=== PATIENT | female | born 1940 | race Two or more races ===

== ENCOUNTER 2021-05-31 17:39 | Inpatient (IN) | payer MEDICARE ==
[~2021-05-31] VITALS: Ht 167.6 cm; Wt 71.7 kg
[2021-05-31] MEDS ORDERED: SODIUM CHLORIDE 0.9% 1,000 ML IV ONE (18:00)
[2021-05-31] MEDS ORDERED: ONDANSETRON HCL 4MG/2ML INJ IV ONE (18:00)
[2021-05-31] MEDS ORDERED: HYDROCODONE/ACETAMINOPHEN 5/325MG TABLET PO ONE (19:45)
[2021-05-31 21:02] LABS: BASOPHILS % 0.2 % (0.0-2.0); EOSINOPHILS % 0.1 % (0.0-5.0); HEMATOCRIT. 33.9 % (36.0-48.0); HEMOGLOBIN. 11.1 g/dL (12.0-16.0); LYMPHOCYTES % 8.8 % (20.0-50.0); MEAN CORPUSCULAR HEMOGLOBIN 25.9 pg (28.0-32.0); MEAN CORPUSCULAR VOLUME 78.8 fL (81.0-99.0); MEAN PLATELET VOLUME 7.5 fl (7.4-10.4); MONOCYTES % 5.2 % (2.0-8.0); NEUTROPHILS % 85.7 % (40.0-76.0); PLATELET 256 x1000/uL (130-400); RED BLOOD CELL COUNT 4.31 mill/uL (4.2-5.4)
[2021-05-31 21:08] LABS: CHLORIDE 109 mEq/L (98-107)
[2021-05-31] MEDS ORDERED: SODIUM CHLORIDE 0.9% 1000ML BAG (SEPSIS BOLUS) IV NR (22:00)
[2021-05-31] MEDS ORDERED: PIPERACILLIN/TAZ 3.375G PREMIX 50 ML IV NR (22:00)
[2021-05-31] MEDS ORDERED: KETOROLAC 15MG/ML VIAL IV ONE (22:30)
[2021-05-31 23:29] LABS: CLARITY URINE CLOUDY (CLEAR); COLOR URINE YELLOW (YELLOW); KETONES URINE TRACE (NEGATIVE); LEUKOCYTE ESTERASE URINE 2+ (NEGATIVE); NITRITE URINE NEGATIVE (NEGATIVE); OCCULT BLOOD URINE NEGATIVE (NEGATIVE); PH URINE 5.5 (4.5-8.0); PROTEIN URINE NEGATIVE (NEGATIVE); SPECIFIC GRAVITY URINE 1.022 (1.005-1.030); UROBILINOGEN URINE 0.2 E.U./dL (0.2-1.0)
[2021-05-31] MEDS ORDERED: LORAZEPAM 2MG/ML CPJ IV PRN (23:45)
[2021-05-31] MEDS ORDERED: ACETAMINOPHEN 325MG TABLET PO PRN (23:45)
[2021-05-31] MEDS ORDERED: NALOXONE HCL 0.4MG/ML VIAL IV PRN (23:45)
[2021-06-01] MEDS: MORPHINE SULFATE 2 MG/ML CPJ (NOT FOR IM USE) IV PRN ×2 (00:04→15:57)
[2021-06-01] MEDS ORDERED: CEFTRIAXONE 1 G PREMIX 50 ML IV NR (01:00)
[2021-06-01] MEDS: HYDROCODONE/ACETAMINOPHEN 5/325MG TABLET PO PRN (01:52)
[2021-06-01 05:13] LABS: BASOPHILS % 0.2 % (0.0-2.0); HEMATOCRIT. 26.6 % (36.0-48.0); HEMOGLOBIN. 8.9 g/dL (12.0-16.0); LYMPHOCYTES % 7.3 % (20.0-50.0); MEAN CORPUSCULAR HEMOGLOBIN 26.6 pg (28.0-32.0); MEAN CORPUSCULAR VOLUME 79.9 fL (81.0-99.0); MEAN PLATELET VOLUME 8.1 fl (7.4-10.4); MONOCYTES % 3.9 % (2.0-8.0); NEUTROPHILS % 88.6 % (40.0-76.0); PLATELET 249 x1000/uL (130-400); RED BLOOD CELL COUNT 3.33 mill/uL (4.2-5.4); RED CELL DISTRIBUTION WIDTH 14.4 % (11.6-14.6)
[2021-06-01 05:17] LABS: CHLORIDE 114 mEq/L (98-107)
[2021-06-01] MEDS: SODIUM CHLORIDE 0.9% 1,000 ML IV SCH ×2 (07:08→16:07)
[2021-06-01] MEDS ORDERED: ENOXAPARIN 40MG/0.4ML SYR SUBCUT SCH (09:00)
[2021-06-01] MEDS: DILTIAZEM HCL 30MG TABLET PO SCH ×2 (15:57→21:42)
[2021-06-01 16:00] VITALS: BP 135/66
[2021-06-01] MEDS ORDERED: CLON0.1T MT (17:26)
[2021-06-01] MEDS ORDERED: RIVA20TA MT (17:28)
[2021-06-01] MEDS: ONDANSETRON HCL 4MG/2ML INJ IV PRN (19:00)
[2021-06-01] MEDS ORDERED: IPRATROPIUM/ALBUTEROL 0.5-3(2.5)MG/3ML NEB HHN PRN (19:45)
[2021-06-01] MEDS ORDERED: MAGNESIUM/ALUMINUM HYDROXIDE/SIMETHICONE 30ML UDC PO PRN (19:45)
[2021-06-01 19:47] VITALS: BP 135/66
[2021-06-01 20:00] VITALS: BP 158/63
[2021-06-01] MEDS ORDERED: MAGNESIUM 2 G PREMIX 50 ML IV NR (21:00)
[2021-06-01] MEDS: DILTIAZEM HCL 5MG/ML 5ML VIAL IV PRN (22:19)
[2021-06-02] VITALS (10 sets, daily range): BP systolic 101–156; BP diastolic 55–79
[2021-06-02] MEDS: SODIUM CHLORIDE 0.9% 1,000 ML IV SCH ×2 (04:44→20:20)
[2021-06-02] MEDS: HYDROCODONE/ACETAMINOPHEN 5/325MG TABLET PO PRN ×2 (05:00→19:20)
[2021-06-02] MEDS: DILTIAZEM HCL 30MG TABLET PO SCH ×2 (05:15→13:42)
[2021-06-02] MEDS: CEFTRIAXONE 1,000 MG in DEXTROSE 5% WATER 50 ML IV SCH (08:33)
[2021-06-02] MEDS: ONDANSETRON HCL 4MG/2ML INJ IV PRN ×2 (08:34→15:23)
[2021-06-02] MEDS ORDERED: ATOR40TA70 MT (10:11)
[2021-06-02] MEDS ORDERED: ANAS1TAB49 MT (10:11)
[2021-06-02 10:40] LABS: BASOPHILS % 0.8 % (0.0-2.0); EOSINOPHILS % 1.5 % (0.0-5.0); LYMPHOCYTES % 14.6 % (20.0-50.0); MEAN CORPUSCULAR HEMOGLOBIN 25.7 pg (28.0-32.0); MEAN CORPUSCULAR VOLUME 81.3 fL (81.0-99.0); MEAN PLATELET VOLUME 8.6 fl (7.4-10.4); MONOCYTES % 9.7 % (2.0-8.0); NEUTROPHILS % 73.4 % (40.0-76.0); PLATELET 211 x1000/uL (130-400); RED BLOOD CELL COUNT 2.67 mill/uL (4.2-5.4); RED CELL DISTRIBUTION WIDTH 14.6 % (11.6-14.6)
[2021-06-02 10:51] LABS: CHLORIDE 115 mEq/L (98-107)
[2021-06-02 10:56] LABS: HEMATOCRIT. 21.7 % (36.0-48.0); HEMOGLOBIN. 6.9 g/dL (12.0-16.0)
[2021-06-02 10:58] LABS: LDL CHOLESTEROL 55 mg/dL (5-100)
[2021-06-02 11:00] LABS: HDL CHOLESTEROL 36 mg/dL (40-59); T4 FREE 1.03 ng/dL (0.76-1.46)
[2021-06-02 14:36] LABS: TOTAL IRON BINDING CAPACITY 285 ug/dL (250-450)
[2021-06-02] MEDS ORDERED: DIGOXIN 250MCG TABLET PO NR (15:30)
[2021-06-02 16:18] LABS: FOLIC ACID (FOLATE) SERUM 3.7 ng/mL (>5.38)
[2021-06-02] MEDS ORDERED: RIVAROXABAN 20 MG TABLET PO SCH (17:00)
[2021-06-02] MEDS: DILTIAZEM HCL 60MG TABLET PO SCH (21:13)
[2021-06-02] MEDS: OMEPRAZOLE 20MG CAPSULE EXTENDED RELEASE PO SCH (21:13)
[2021-06-02 22:53] LABS: HEMATOCRIT 24.3 % (36.0-48.0); HEMOGLOBIN 8.7 g/dL (12.0-16.0)
[2021-06-02] MEDS: DILTIAZEM HCL 5MG/ML 5ML VIAL IV PRN (23:03)
[2021-06-03] VITALS: BP 131/62
[2021-06-03] MEDS: HYDROCODONE/ACETAMINOPHEN 5/325MG TABLET PO PRN ×2 (00:40→16:30)
[2021-06-03 04:00] VITALS: BP 100/70
[2021-06-03] MEDS: OMEPRAZOLE 20MG CAPSULE EXTENDED RELEASE PO SCH ×2 (06:01→20:37)
[2021-06-03] MEDS: DILTIAZEM HCL 60MG TABLET PO SCH ×3 (06:01→19:01)
[2021-06-03 07:52] LABS: CHLORIDE 114 mEq/L (98-107)
[2021-06-03 07:59] LABS: BASOPHILS % 0.8 % (0.0-2.0); EOSINOPHILS % 2.7 % (0.0-5.0); HEMATOCRIT. 22.8 % (36.0-48.0); HEMOGLOBIN. 7.8 g/dL (12.0-16.0); MEAN CORPUSCULAR HEMOGLOBIN 27.5 pg (28.0-32.0); MEAN CORPUSCULAR VOLUME 80.9 fL (81.0-99.0); MEAN PLATELET VOLUME 7.8 fl (7.4-10.4); MONOCYTES % 12.3 % (2.0-8.0); NEUTROPHILS % 69.2 % (40.0-76.0); PLATELET 195 x1000/uL (130-400); RED BLOOD CELL COUNT 2.82 mill/uL (4.2-5.4)
[2021-06-03 08:00] VITALS: BP 128/70
[2021-06-03] MEDS: SODIUM CHLORIDE 0.9% 1,000 ML IV SCH (09:08)
[2021-06-03] MEDS: CEFTRIAXONE 1,000 MG in DEXTROSE 5% WATER 50 ML IV SCH (09:08)
[2021-06-03] MEDS ORDERED: DIGOXIN 125MCG TABLET PO SCH ×3 (10:30→18:00)
[2021-06-03 12:00] VITALS: BP 101/70
[2021-06-03 16:00] VITALS: BP 121/52
[2021-06-03] MEDS: CLONIDINE 0.1MG TABLET PO PRN (16:30)
[2021-06-03] MEDS: IRON SUCROSE COMPLEX 100 MG/5 ML ML IV SCH (19:02)
[2021-06-03 20:00] VITALS: BP 145/68
[2021-06-03 23:45] LABS: HEMATOCRIT 22.8 % (36.0-48.0)
[2021-06-04] VITALS: BP 137/57
[2021-06-04] MEDS: SODIUM CHLORIDE 0.9% 1,000 ML IV SCH (00:13)
[2021-06-04] MEDS: DILTIAZEM HCL 60MG TABLET PO SCH ×3 (00:42→11:25)
[2021-06-04 04:00] VITALS: BP 142/59
[2021-06-04] MEDS: OMEPRAZOLE 20MG CAPSULE EXTENDED RELEASE PO SCH ×2 (06:21→20:28)
[2021-06-04 07:05] LABS: HEMATOCRIT 25.4 % (36.0-48.0); HEMOGLOBIN 8.6 g/dL (12.0-16.0)
[2021-06-04 08:00] VITALS: BP 152/62
[2021-06-04] MEDS ORDERED: DIGOXIN 250MCG TABLET PO SCH (08:55)
[2021-06-04] MEDS: FOLIC ACID 1MG TABLET PO SCH (11:25)
[2021-06-04 12:00] VITALS: BP 152/74
[2021-06-04] MEDS: DILTIAZEM HCL 90MG TABLET PO SCH ×3 (12:00→23:32)
[2021-06-04 16:00] VITALS: BP 160/67
[2021-06-04] MEDS: IRON SUCROSE COMPLEX 100 MG/5 ML ML IV SCH (16:00)
[2021-06-04] MEDS ORDERED: LACTULOSE 20G/30ML UDC PO PRN (16:15)
[2021-06-04] MEDS: LEVOFLOXACIN 500MG TABLET PO SCH (16:18)
[2021-06-04] MEDS: DOCUSATE SODIUM 100MG CAPSULE PO SCH (17:45)
[2021-06-04] MEDS: DIGOXIN 250MCG TABLET PO SCH (17:45)
[2021-06-04 20:00] VITALS: BP 103/70
[2021-06-04] MEDS: HYDROCODONE/ACETAMINOPHEN 5/325MG TABLET PO PRN (20:47)
[2021-06-04] MEDS: ONDANSETRON HCL 4MG/2ML INJ IV PRN (20:48)
[2021-06-05] VITALS: BP 130/75
[2021-06-05 04:00] VITALS: BP 168/65
[2021-06-05] MEDS: DILTIAZEM HCL 90MG TABLET PO SCH ×3 (05:52→17:08)
[2021-06-05] MEDS: OMEPRAZOLE 20MG CAPSULE EXTENDED RELEASE PO SCH ×2 (05:52→21:12)
[2021-06-05 07:00] LABS: BASOPHILS % 0.3 % (0.0-2.0); EOSINOPHILS % 1.4 % (0.0-5.0); HEMATOCRIT. 25.1 % (36.0-48.0); HEMOGLOBIN. 8.5 g/dL (12.0-16.0); MEAN CORPUSCULAR HEMOGLOBIN 27.9 pg (28.0-32.0); MEAN CORPUSCULAR VOLUME 82.5 fL (81.0-99.0); MEAN PLATELET VOLUME 7.6 fl (7.4-10.4); MONOCYTES % 10.9 % (2.0-8.0); NEUTROPHILS % 76.4 % (40.0-76.0); PLATELET 292 x1000/uL (130-400); RED BLOOD CELL COUNT 3.05 mill/uL (4.2-5.4); RED CELL DISTRIBUTION WIDTH 15.1 % (11.6-14.6)
[2021-06-05 08:00] VITALS: BP 148/62
[2021-06-05 08:19] LABS: CHLORIDE 107 mEq/L (98-107)
[2021-06-05] MEDS: DOCUSATE SODIUM 100MG CAPSULE PO SCH ×2 (08:28→17:07)
[2021-06-05] MEDS: FOLIC ACID 1MG TABLET PO SCH (08:28)
[2021-06-05] MEDS ORDERED: POTASSIUM CHLORIDE 20MEQ TABLET SR PO NR (10:00)
[2021-06-05] MEDS ORDERED: ONDANSETRON 4MG ODT PO PRN (10:15)
[2021-06-05] MEDS: LEVOFLOXACIN 500MG TABLET PO SCH (10:25)
[2021-06-05] MEDS ORDERED: MECLIZINE 25MG TABLET PO PRN (11:30)
[2021-06-05 12:00] VITALS: BP 160/64
[2021-06-05 16:00] VITALS: BP 136/67
[2021-06-05] MEDS: IRON SUCROSE COMPLEX 100 MG/5 ML ML IV SCH ×2 (16:00→17:06)
[2021-06-05] MEDS: DIGOXIN 250MCG TABLET PO SCH (17:08)
[2021-06-05 20:00] VITALS: BP 161/70
[2021-06-05] MEDS: CLONIDINE 0.1MG TABLET PO PRN (21:12)
[2021-06-06] VITALS: BP 147/67
[2021-06-06] MEDS: DILTIAZEM HCL 90MG TABLET PO SCH ×3 (00:44→13:01)
[2021-06-06 04:00] VITALS: BP 148/62
[2021-06-06] MEDS: OMEPRAZOLE 20MG CAPSULE EXTENDED RELEASE PO SCH (05:47)
[2021-06-06 08:00] VITALS: BP 150/60
[2021-06-06] MEDS: DOCUSATE SODIUM 100MG CAPSULE PO SCH (08:31)
[2021-06-06] MEDS: FOLIC ACID 1MG TABLET PO SCH (08:31)
[2021-06-06] MEDS: LEVOFLOXACIN 500MG TABLET PO SCH (11:28)
[2021-06-06 12:00] VITALS: BP 140/70
[2021-06-06] MEDS ORDERED: DILT360C27 MT (13:58)
[2021-06-06] MEDS ORDERED: LEVO500T89 MT (13:58)
[2021-06-06] MEDS ORDERED: FERR325T6 MT (13:58)
[2021-06-06] MEDS ORDERED: DOCU-138 MT (13:58)
[2021-06-06 14:43] VITALS: BP 140/70
== END 2021-06-06 15:20 | disposition home or self-care (01) | DRG 919 ==
LOC: ER 17:39 → MICUSO 22:59 → EDBEDREQ 23:12 → 7EST 06-01 15:33
PROVIDERS: ADMIT Internal Medicine Nephrology; ATTEND Internal Medicine Nephrology
PROC: 30233N1 Transfusion of Nonautologous Red Blood Cells into Peripheral Vein, Percutaneous Approach (ICD-10-PCS; principal; 2021-06-02)
DX: L76.32 Postprocedural hematoma of skin and subcutaneous tissue following other procedure (principal); A41.9 Sepsis, unspecified organism; R65.20 Severe sepsis without septic shock; N39.0 Urinary tract infection, site not specified; E11.9 Type 2 diabetes mellitus without complications; E78.5 Hyperlipidemia, unspecified; E83.42 Hypomagnesemia; R42 Dizziness and giddiness; G90.8 Other disorders of autonomic nervous system; I27.20 Pulmonary hypertension, unspecified; E87.8 Other disorders of electrolyte and fluid balance, not elsewhere classified; N63.31 Unspecified lump in axillary tail of the right breast; E53.8 Deficiency of other specified B group vitamins; D50.9 Iron deficiency anemia, unspecified; I10 Essential (primary) hypertension; Y84.8 Other medical procedures as the cause of abnormal reaction of the patient, or of later complication, without mention of misadventure at the time of the procedure; I48.91 Unspecified atrial fibrillation; Z90.12 Acquired absence of left breast and nipple; Z85.3 Personal history of malignant neoplasm of breast; Z90.49 Acquired absence of other specified parts of digestive tract; Z90.710 Acquired absence of both cervix and uterus; Y92.89 Other specified places as the place of occurrence of the external cause
CPT/HCPCS: 36415; 70551; 71045; 80048; 80053; 80061; 80162; 81003; 82607; 82728; 82746; 83540; 83550; 83605; 83735; 84145; 84439; 84443; 84484; 85014; 85018; 85025; 85044; 86850; 86900; 86920; 93005; 93306; 93880; 97110; 97116; 97163; 97166; 97530; 97535; 99291; J0696; J1650; J1885; J2060; J2270; J2405; J2543; J3475; J3490; J7030; J7060; J8597; P9016; Q0162